=== PATIENT | male | born 2000 | race Caucasian/White ===

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

== ENCOUNTER 2021-04-20 15:22 | Day surgery (SDC) | payer BC ==
[2021-04-20] VITALS (7 sets, daily range): BP systolic 98–140; BP diastolic 39–73
[2021-04-20] MEDS ORDERED: LIDOCAINE PF 2% 5 ML (XYLOCAINE) VIAL ONE (15:43)
[2021-04-20] MEDS ORDERED: MIDAZOLAM 2 MG/2 ML (VERSED) VIAL ONE (15:43)
[2021-04-20] MEDS ORDERED: ONDANSETRON 4 MG/2 ML (SDV) Z0FRAN ONE (15:43)
[2021-04-20] MEDS ORDERED: proPOfol 200 MG/20 ML (DIPRIVAN) VIAL IV ONE (15:43)
[2021-04-20] MEDS ORDERED: fentaNYL INJ 100 MCG/2 ML AMP ONE (15:43)
[2021-04-20] MEDS ORDERED: SEVOFLURANE (ULTANE) 15 ML INHAL SOLN ONE ×2 (15:43→16:34)
[2021-04-20] MEDS ORDERED: ROCURONIUM 10 MG/ML 5 ML SYRINGE IV ONE (15:43)
[2021-04-20] MEDS ORDERED: CLINDAMYCIN 900 MG/50 ML IVPB 50 ML IV ONE (15:45)
[2021-04-20] MEDS ORDERED: LACTATED RINGERS 1,000 ML IV ONE (15:45)
[2021-04-20] MEDS ORDERED: LIDOCAINE/EPI 1%-1:200,000 (XYLOCAINE) 30 ML VIAL ONE (15:54)
[2021-04-20] MEDS ORDERED: ONDANSETRON 4 MG/2 ML (SDV) Z0FRAN IVP PRN (16:00)
[2021-04-20] MEDS ORDERED: LACTATED RINGERS 1,000 ML IV PRN (16:00)
[2021-04-20] MEDS ORDERED: morphine INJ 10 MG/ML 1ML (SYR OR VIAL) IVP ONE (16:00)
[2021-04-20] MEDS ORDERED: fentaNYL INJ 100 MCG/2 ML AMP IVP ONE (16:00)
[2021-04-20] MEDS ORDERED: MEPERIDINE (DEMEROL) INJ 50 MG/ML IVP ONE (16:00)
--- NOTE | 2021-04-20 16:11 | Consultation - Surgery ---
JANINE JACKSON 04/20/21 1611: History of Present Illness History of Present Illness Patient Consulted On(grady/time) 04/20/21 16:05 Date Seen by Provider: Apr 20, 2021 Time Seen by Provider: 03:50 Reason for Visit: abdominal pain History of Present Illness Pt is 20yo male with 2 week history of predominantly RLQ abdominal pain. He went to urgent care after one week of pain. They took an XRay and didn't find anything. They told him to come back if it worsened. The pain did not go away and worsened to 8/10 yesterday. sent him for a CT of the abd/pelvis without contrast. It showed inflammatory changes in the RLQ with no abscess, drainable fluid or free air. No bowel obstruction was seen and no appendicolith was present. The appendix was thick and inflamed approximately 1.3cm. He describes his pain as sharp, intermittent, and worse after eating and with movement. It is currently 6/10. He has not had N/V, and his bowel movements have been regular with no diarrhea or constipation. His last bm was last night. Pt denies CP, SOB, palpitations, and fever at this time. Allergies and Home Medications Allergies Coded Allergies: Penicillins (Verified Allergy, Mild, HIVES, 12/29/16) Patient Home Medication List No Active Prescriptions or Reported Meds Past Xehkfrq-Gmvnbf-Ncteku Hx Patient Social History Recent Hopitalizations: No Seasonal Allergies Seasonal Allergies: No Surgeries Surgeries: Orthopedic Reproductive System Hx Reproductive Disorders: No Sexually Transmitted Disease: No HIV/AIDS: No HEENT Loss of Vision: Denies Hearing Impairment: Denies Psychosocial Behavioral Health Disorders: Anxiety, Depression Blood Transfusions Adverse Reaction to a Blood Tr: No Family Medical History Significant Family History: Heart Disease (dad's side of family), Other Conditions/Hx (dad has Ulcerative colitis) Review of Systems-General Constitutional: No chills, No fever EENTM: No hearing loss, No vision loss Respiratory: cough; No short of breath Cardiovascular: No chest pain, No palpitations Gastrointestinal: abdominal pain; No constipation, No diarrhea, No nausea, No vomiting Genitourinary: dysuria (burning); No frequency (no change in freq) Musculoskeletal: No muscle pain, No muscle cramps Skin: No lesions; other (thinks he has athletes foot) Psychiatric/Neurological: Anxiety; Denies Headache Physical Exam-General Problems Physical Exam Vital Signs Capillary Refill : General Appearance: WD/WN, no apparent distress Respiratory: lungs clear, normal breath sounds, no respiratory distress Cardiovascular: regular rate, rhythm, no murmur Peripheral Pulses: 2+ Radial Pulses (R), 2+ Radial Pulses (L) Gastrointestinal: soft, tenderness (diffuse but jorge luis RLQ) Neurologic/Psychiatric: alert, normal mood/affect, oriented x 3 Skin: normal color, warm/dry Assessment/Plan Assessment/Plan Assessment/Plan Abdominal pain (predominantly RLQ)- appendicitis Anxiety Abd/Pelvic CT-- per radiology, inflammatory changes in the RLQ with no abscess, drainable fluid or free air. No bowel obstruction was seen and no appendicolith was present. The appendix was thick and inflamed approximately 1.3cm. Awaiting appendectomy Started on clinda IVFs EDITA VIRGEN GALLOWAY [place] DO 04/20/21 1626: History of Present Illness History of Present Illness Time Seen by Provider: 16:01 History of Present Illness Pt is 20yo male with 2 week history of predominantly RLQ abdominal pain. He went to urgent care after one week of pain. They took an XRay and didn't find anything. They told him to come back if it worsened. The pain did not go away and worsened to 8/10 yesterday. sent him for a CT of the abd/pelvis without contrast. It showed inflammatory changes in the RLQ with no abscess, drainable fluid or free air. No bowel obstruction was seen and no appendicolith was presen t. The appendix was thick and inflamed approximately 1.3cm. He describes his pain as sharp, intermittent, and worse after eating and with movement. It is currently 6/10. He has not had N/V, and his bowel movements have been regular with no diarrhea or constipation. His last bm was last night. Pt denies CP, SOB, palpitations, and fever at this time. Allergies and Home Medications Allergies Coded Allergies: Penicillins (Verified Allergy, Mild, HIVES, 12/29/16) Patient Home Medication List Home Medication List Reviewed: Yes No Active Prescriptions or Reported Meds Past Mxotllp-Qliznd-Zwbizc Hx Patient Social History Smoking Status: Never a Smoker Alcohol Use?: Yes (very rarely) Surgeries History of Surgeries: Yes Surgeries: Orthopedic Respiratory History of Respiratory Disorde: No Cardiovascular History of Cardiac Disorders: No Genitourinary History of Genitourinary Disor: No Gastrointestinal History of Gastrointestinal Di: No Musculoskeletal History of Musculoskeletal Dis: Yes Musculoskeletal Disorders: Fractures Endocrine History of Endocrine Disorders: No HEENT History of HEENT Disorders: No Psychosocial History of Psychiatric Problem: Yes Behavioral Health Disorders: Anxiety Family Medical History Significant Family History: Heart Disease (dad's side of family), Other Conditions/Hx (dad has Ulcerative colitis) Review of Systems-General Constitutional: No chills, No fever EENTM: No hearing loss, No vision loss Respiratory: cough; No short of breath Cardiovascular: No chest pain, No palpitations Gastrointestinal: abdominal pain; No constipation, No diarrhea, No nausea, No vomiting Genitourinary: dysuria (burning); No frequency (no change in freq) Musculoskeletal: No muscle pain, No muscle cramps Skin: No lesions; other (thinks he has athletes foot) Psychiatric/Neurological: Anxiety; Denies Headache Physical Exam-General Problems Physical Exam General Appearance: no apparent distress, obese Eyes: Bilateral Eye PERRL, Bilateral Eye EOMI HEENT: PERRL/EOMI, pharynx normal Neck: non-tender, supple Respiratory: lungs clear, normal breath sounds, no respiratory distress, no accessory muscle use Cardiovascular: regular rate, rhythm, no murmur Gastrointestinal: soft, no organomegaly, tenderness (diffuse but jorge luis RLQ), her medhat (umbilical) Back: no CVA tenderness, no vertebral tenderness Extremities: non-tender, normal inspection, no pedal edema, no calf tenderness Neurologic/Psychiatric: director voice II-XII nml as tested, no motor/sensory deficits, alert, normal mood/affect, oriented x 3 Skin: normal color, warm/dry Lymphatic: no adenopathy (neck, axilla or groin) Data Review Radiology Date of Exam:04/20/21 CT ABDOMEN/PELVIS WO PROCEDURE: CT abdomen and pelvis without contrast. TECHNIQUE: Multiple contiguous axial images were obtained through the abdomen and pelvis without the use of intravenous contrast. Auto Exposure Controls were utilized during the CT exam to meet ALARA standards for radiation dose reduction. INDICATION: Right lower quadrant pain. The symptoms are of 2 weeks' duration. FINDINGS: There are inflammatory changes adjacent to the caudal pole of the cecum. At the epicenter is a what is believed to be an abnormally thickened and inflamed appendix measuring an approximate diameter of 1.3 cm. Detail limited by the lack of contrast media. No appreciable drainable fluid collection or abscess and there is no regional bowel obstruction. There is a trace amount of free fluid along the lower right colic gutter. No appendicolith. This is fatty infiltration of the liver with no bile duct dilatation. The spleen, adrenals and pancreas normal. There is no opaque gallstone. The aorta nonaneurysmal. There is no hydroureteronephrosis, no radiopaque urinary tract calculi. The kidneys appeared unremarkable. The urinary bladder unremarkable. IMPRESSION: Inflammatory changes right lower quadrant most consistent with sequelae of appendicitis. No abscess or drainable fluid collection and no free air. No resultant bowel obstruction. No appendicolith. Dictated by: Dictated on workstation # [id number] Dict: 04/20/21 1218 Trans: 04/20/21 1234 [facility] [id number] Interpreted by: DAVIDSON RUTLEDGE Electronically signed by: DAVIDSON RUTLEDGE 04/20/21 1234 Assessment/Plan Assessment/Plan Assessment/Plan Acute Appendicitis Plan to the OR for lap appy possible open. Discussed procedure with pt and family; went over risks and complications not limited to pain, bleeding, infection, scar, damage to bowel and need for further procedure. All questions answered to pt's satisfaction. IV fluids, IV ABX, pain meds as needed. Supervisory-Addendum Brief Verification & Attestation Participated in pt care: history, MDM, physical Personally performed: exam, history, MDM, supervision of care Care discussed with: Medical Student Procedures: n/a Verification and Attestation of Medical Student E/M Service A medical student performed and documented this service. I then reviewed and verified all information documented by the medical student and made modifications to such information, when appropriate. I personally performed a physical exam, medical decision making and then discussed any differences between the notes and made revisions as necessary to create one note. Virgen Galloway , 04/20/21 , 16:26 JANINE JACKSON Apr 20, 2021 16:11 VIRGEN GALLOWAY DO Apr 20, 2021 16:26
[2021-04-20] MEDS: LACTATED RINGERS 1,000 ML IV PRN ×2 (16:20→17:02)
[2021-04-20] MEDS ORDERED: NEOSTIGMINE 3 MG/3 ML VIAL ONE (17:14)
[2021-04-20] MEDS ORDERED: GLYCOPYRROLATE 0.2 MG/ML (ROBINUL) 2 ML VIAL ONE (17:14)
--- NOTE | 2021-04-20 17:22 | Progress Note-Post Operative ---
Post-Operative Progess Note Surgeon (s)/Bus Company Manager (s) Surgeon VIRGEN GALLOWAY DO Bus Company Manager: ABRAHAM Hand Pre-Operative Diagnosis Acute appy Post-Operative Diagnosis same plus b/l inguinal hernia umbilical hernia Procedure & Operative Findings Date of Procedure 04/20/21 Procedure Performed/Findings PROCEDURE: Laparoscopic appendectomy. COMPLICATIONS: None. INDICATIONS: The patient is a 20 year old male who has been having right lower quadrant abdominal pain. Patient's exam consistent with appendicitis. I discussed risk and benefits of laparoscopic appendectomy and all indicated procedures with the possibility being a normal appendix. The patient understands the risks and benefits and wishes to proceed. Consent was signed on the chart. DESCRIPTION OF PROCEDURE: The patient was taken to the operating suite, prepped and draped in a sterile fashion. Timeout was performed. Local anesthetic was infiltrated just above the umbilicus and 11-blade scalpel was used to make a skin incision. Cautery was used to dissect down to the fascia and scored. Kochers were used to grasp and elevate it and the abdomen was then entered. A 0 Vicryl was placed in a [id number] fashion for closure at the end of the case. The balloon trocar was inserted into the abdomen and pneumoperitoneum was achieved. Under direct visualization of the laparoscope, a 5 mm trocar was placed in the suprapubic region and a 5 mm trocar was placed in the left lower quadrant. Appendix was located, it was thickened and had fibrinous material around it; not perforated. The base of the appendix was dissected around. Once at the base an Endo-SUSY 2.5 stapler was then fired across the base of the appendix. The mesoappendix was then divided. It was then placed in an Endobag and removed through the 12 mm trocar site. The abdomen was then irrigated and suctioned. No other pathology noted. The abdomen was then desufflated and the trocars were removed. The 0 Vicryl placed at the beginning of the case was then tied closing the 12 mm fascial defect. The skin was then closed using 4-0 Monocryl in a subcuticular fashion. The abdomen was then washed and dried and Skin Affix was placed over the incisions. The patient tolerated the procedure well without any complications and was taken to the recovery room in stable condition. While looking around in pelvis saw some very early inguinal hernias, pics taken. Anesthesia Type GET Estimated Blood Loss Estimated blood loss (mL): scant Specimens/Packing Specimens Removed appendix VIRGEN GALLOWAY DO Apr 20, 2021 17:22
[2021-04-20] MEDS ORDERED: ACHD5005 PO (17:23)
--- NOTE | 2021-04-20 17:24 | Discharge Inst-Surgical ---
Discharge Inst-Surgical Depart Medication/Instructions New, Converted or Re-Newed RX: Transmitted to Pharmacy Patient Instructions Follow up Appt: Make appointment for 1 week. [phone] Instructions: No lifting greater than 20 pounds. No strenuous activity. May shower in 24 hours, no tub bath or soaking. Use incentive spirometer at home as directed. No Smoking Skin/Wound Care: May remove bandages in am. You need to leave the Dermabond on incision it will fall off on it's own. Symptoms to Report: Appetite Changes, Extremity Discoloration, Numbness/Tingling, Swelling Increased, Bleeding Excessive, Eyesight Changes, Pain Increased, Urine Color Change, Constipation(Persistent), Fever over 101 degree F, Pain/Pressure in chest, Urinating Difficulty, Cough Up/Vomit Blood, Heart Beat Irreg/Pounding, Pain/Pressure in jaw, Cramps in feet or legs, Lightheadedness, Pain/Pressure in shoulder, Diarrhea(Persistent), Memory Changes Suddenly, Questions/Concerns, Weight gain consecutive days, Dizziness/Fainting, Nausea/Vomiting, Shortness of Breath, Weight gain over 2 pounds If questions or concerns contact your physician Or seek help at emergency department. Activity Activity as Tolerated: Yes Activity Instructions: Avoid Stress to Incision Driving Instructions: No Driving/Refer to Dr. Barton Discharge Diet: No Restrictions Diet After 24 Hours: Clear Liquid if Nauseous If Any Problems/Questions/Issu: Contact Your Physician, Go to Emergency Room Skin/Wound Care Infection Signs and Symptoms: Increased Redness, Foul Odor of Wound, Increased Drainage, Skin Itchy or Has a Rash, Increased Swelling, Temperature Above 101 F Wound Care Comment: heating pad to shoulder or neck tonight for pain Bathing Instructions: Shower Stitches/[place]/Dermabond Dis: Dermabond Ice Pack: Ice On and Off Site VIRGEN GALLOWAY DO Apr 20, 2021 17:24
--- NOTE | 2021-04-20 17:44 | Anesthesia-General Post-Op ---
General Patient Condition Mental Status/LOC: Same as Preop Cardiovascular: Satisfactory Nausea/Vomiting: Absent Respiratory: Satisfactory Pain: Controlled Complications: Absent Post Op Complications Complications None Follow Up Care/Instructions Patient Instructions None needed. Anesthesia/Patient Condition Patient Condition Patient is doing well, no complaints, stable vital signs, no apparent adverse anesthesia problems. No complications reported per nursing. LANCE MANE CRNA Apr 20, 2021 17:44
[2021-04-20] MEDS ORDERED: HYDROcodone/APAP 5 MG/325 MG (LORTAB) TAB ONE (19:07)
== END 2021-04-20 20:06 | disposition home or self-care (01) ==
LOC: SDC 15:22 → 4TH 15:22 → SDC 20:06
PROVIDERS: ATTEND Surgery
DX: K35.80 Unspecified acute appendicitis (principal); K40.20 Bilateral inguinal hernia, without obstruction or gangrene, not specified as recurrent; K42.9 Umbilical hernia without obstruction or gangrene; F41.9 Anxiety disorder, unspecified; Z79.899 Other long term (current) drug therapy
CPT/HCPCS: 88304

== ENCOUNTER → 2021-04-20 | Outpatient (CLI) | payer BC ==
[~2021-04-20] MED LIST: ACHD5005 PO
--- NOTE | 2021-04-20 12:32 | Diagnostic Imaging Report ---
PROCEDURE: CT abdomen and pelvis without contrast. TECHNIQUE: Multiple contiguous axial images were obtained through the abdomen and pelvis without the use of intravenous contrast. Auto Exposure Controls were utilized during the CT exam to meet ALARA standards for radiation dose reduction. INDICATION: Right lower quadrant pain. The symptoms are of 2 weeks' duration. FINDINGS: There are inflammatory changes adjacent to the caudal pole of the cecum. At the epicenter is a what is believed to be an abnormally thickened and inflamed appendix measuring an approximate diameter of 1.3 cm. Detail limited by the lack of contrast media. No appreciable drainable fluid collection or abscess and there is no regional bowel obstruction. There is a trace amount of free fluid along the lower right colic gutter. No appendicolith. This is fatty infiltration of the liver with no bile duct dilatation. The spleen, adrenals and pancreas normal. There is no opaque gallstone. The aorta nonaneurysmal. There is no hydroureteronephrosis, no radiopaque urinary tract calculi. The kidneys appeared unremarkable. The urinary bladder unremarkable. IMPRESSION: Inflammatory changes right lower quadrant most consistent with sequelae of appendicitis. No abscess or drainable fluid collection and no free air. No resultant bowel obstruction. No appendicolith. Dictated by: Dictated on workstation # [id number]
== END ==
LOC: RAD 11:53
PROVIDERS: ATTEND Nurse Practitioner Family
DX: R10.31 Right lower quadrant pain (principal); F33.9 Major depressive disorder, recurrent, unspecified; R31.29 Other microscopic hematuria; R63.0 Anorexia
CPT/HCPCS: 74176

== ENCOUNTER → 2021-07-09 | Outpatient (CLI) | payer BC ==
--- NOTE | 2021-07-09 09:15 | Diagnostic Imaging Report ---
INDICATION: Elevated liver enzymes. PROCEDURE: Ultrasound abdomen complete. TECHNIQUE: Multiple Real-time grayscale images were obtained of the abdomen in various projections. FINDINGS: There is mild hepatomegaly. The diffuse echogenic appearance of the liver is consistent with fatty liver changes. No focal liver lesions are seen. There are no gallstones. The gallbladder wall is not thickened. No pericholecystic fluid. The common bile duct is obscured. The pancreas is obscured by bowel gas. The spleen measures 12.5 cm. The aorta measures 1.8 cm. The right kidney measures 10.3 x 4.6 x 5.3 cm. The left kidney measures 11.6 x 5.9 x 5.7 cm. There is no ascites. Negative Sheets sign. IMPRESSION: Hepatic steatosis with hepatosplenomegaly. Dictated by: Dictated on workstation # [id number]
== END ==
LOC: RAD 07:15
PROVIDERS: ATTEND Internal Medicine
DX: K76.0 Fatty (change of) liver, not elsewhere classified (principal); R16.2 Hepatomegaly with splenomegaly, not elsewhere classified
CPT/HCPCS: 76700